=== PATIENT | female | born 1960 | race Caucasian/White ===

== ENCOUNTER 2019-02-15 09:46 | Day surgery (SDC) | payer BC ==
[~2019-02-15 09:46] MED LIST: Lactated Ringers 1,000 ML IV SCH
[2019-02-15] MEDS ORDERED: Propofol 200 MG/20 ML SDV ONE (11:38)
[2019-02-15] MEDS ORDERED: fentaNYL 100 MCG/2 ML SDV ONE (11:38)
--- NOTE | 2019-02-15 15:10 | OR ---
SURGERY DATE: 02/15/2019. REFERRING PROVIDER: Criselda Molina DO. PRE-OPERATIVE DIAGNOSIS: Gastroesophageal reflux disease. The patient currently on omeprazole 20 mg daily for the past couple of weeks but had previously been on 40 mg daily. She is trying to wean herself off. She has been holding her low-dose aspirin for probably a week. She does take ibuprofen 600 mg at bedtime. Denies any tobacco use. Denies any regular alcohol use. POST-OPERATIVE DIAGNOSES: 1. Moderate antritis located right around the pylorus. Cold biopsy x2 bites taken for path and H pylori. 2. 4 to 5 cm hiatal hernia creating a fundic pouch-like configuration. A 6 mm polyp was removed within this fundic pouch using cold forceps. PROCEDURE: Esophagogastroduodenoscopy with cold biopsy x1 site and polypectomy x1 using cold forceps. SURGEON: James Gamboa M.D. ANESTHESIA: Monitored anesthesia care. Cristina is a 58-year-old female, who was brought to the endoscope suite after discussion of risks and benefits (including but not limited to reaction to medication, bleeding, infection, aspiration, perforation). Informed consent was obtained for monitored anesthesia care and esophagogastroduodenoscopy along with possible biopsy and/or dilatation. Pre-procedure exam including oral cavity was unremarkable. IV, oxygen, and monitors were placed. Patient was placed in the left lateral position and sedation was administered. A bite block was placed gently and scope lightly lubricated and passed through the bite block and over the tongue. Hypopharynx and vocal cords were visualized and unremarkable. Scope was passed through the cricopharynx and into the esophagus. The scope was then passed through the distal esophagus and the GE junction was visualized and photographed. GE junction was remarkable for 4 to 5 cm hiatal hernia creating a fundic pouch like configuration. No esophagitis noted. There was a 6 mm polyp within this fundic pouch that was removed using several bites of the cold forceps. This was done on retroflexion on the way out. The scope was advanced into the stomach and gastric arzate was suctioned. Pylorus was identified and intubated and then the scope was advanced to the third portion of the duodenum. The second and third portions of the duodenum were unremarkable. The duodenal bulb was visualized and unremarkable. The scope was brought back into the stomach. The pylorus and the antrum were remarkable for moderate antritis immediately surrounding the pylorus. Cold biopsy x2 bites was taken from this area to check for H. pylori and sent for path. There was no other significant antral inflammation or ulcerations noted. The scope was retroflexed to visualize the angularis, fundus, body, and cardia. These were unremarkable except for findings noted under GE junction above. Stomach was desufflated with air and then the scope was slowly withdrawn. Esophagus closely visualized during withdrawal all the way to the posterior pharynx. This was unremarkable. The stomach was desufflated of air and then the scope was slowly withdrawn, and the esophagus was closely visualized during withdrawal all the way into the posterior pharynx. The patient tolerated the procedure well and went to recovery in stable condition. The patient was monitored until at baseline status. Findings and discharge instructions were reviewed and the patient was discharged in good condition. COMPLICATIONS: None TOTAL TIME: 14 minutes. ESTIMATED BLOOD LOSS: About 1 mL. RECOMMENDATIONS/FOLLOW-UP: Recommend that the patient probably stay on her PPI at least for now. We discussed possibly changing her ibuprofen at bedtime to something easier on her stomach like Celebrex once a day. Other lifestyle modifications for gastroesophageal reflux disease will probably also be helpful. We also discussed possibly discontinuing her low-dose aspirin for primary prevention. I encouraged her to discuss this with her PCP. If symptoms are not resolving after 4-8 weeks of PPI, consider other potential etiology of her abdominal pain. Will await path results, and send out letter to the patient. I would like to kindly thank Criselda Molina for this referral. DMB: 02/15/2019 14:38:39 MODL: 02/15/2019 15:01:58 /[id number] ALEXIS
== END 2019-02-15 14:35 | disposition home or self-care (01) ==
LOC: VM.SDS 09:46
PROVIDERS: ATTEND Family Medicine
DX: K21.9 Gastro-esophageal reflux disease without esophagitis (principal); K29.50 Unspecified chronic gastritis without bleeding; K44.9 Diaphragmatic hernia without obstruction or gangrene; K31.89 Other diseases of stomach and duodenum; K31.7 Polyp of stomach and duodenum; G47.00 Insomnia, unspecified; E03.4 Atrophy of thyroid (acquired); G25.81 Restless legs syndrome; F43.23 Adjustment disorder with mixed anxiety and depressed mood; E78.5 Hyperlipidemia, unspecified; K58.9 Irritable bowel syndrome, unspecified; Z87.19 Personal history of other diseases of the digestive system; Z91.011 Allergy to milk products; Z88.2 Allergy status to sulfonamides; Z88.5 Allergy status to narcotic agent; Z79.82 Long term (current) use of aspirin; Z79.890 Hormone replacement therapy; Z79.899 Other long term (current) drug therapy
CPT/HCPCS: 43239; J2704; J3010; J7120